=== PATIENT | male | born 1960 | race Hispanic/Latino ===

== ENCOUNTER 2024-12-14 15:48 | Outpatient (CLI) | payer BC ==
[2024-12-14 17:59] LABS: Anion Gap 17 mmol/L (10-20); BUN (Urea Nitrogen) 17 mg/dL (8.4-25.7); Calc. Creatinine Clearance 0 mL/min (70-130); Calcium 9.5 mg/dL (7.8-10.44); Carbon Dioxide 21 mmol/L (23-31); Chloride 102 mmol/L (98-107); Estimated GFR 65; Potassium 4.5 mmol/L (3.5-5.1); Sodium 135 mmol/L (136-145)
[2024-12-14 18:26] LABS: Glucose 464 mg/dL (80-115)
[2024-12-14 18:27] LABS: Critical Call Chemistry Call'd via TigerConn
== END 2024-12-14 15:49 | disposition home or self-care (01) ==
LOC: CSHLAB 15:48
PROVIDERS: ATTEND Podiatrist Foot & Ankle Surgery
DX: Z01.818 Encounter for other preprocedural examination (principal); M86.672 Other chronic osteomyelitis, left ankle and foot; E11.42 Type 2 diabetes mellitus with diabetic polyneuropathy; M20.42 Other hammer toe(s) (acquired), left foot
CPT/HCPCS: 80048; 93005; 93010